=== PATIENT | female | born 1995 | race Caucasian/White ===

== ENCOUNTER 2017-08-17 07:15 | Outpatient (CLI) | payer OTHER | END 2017-08-17 07:16 | disposition home or self-care (01) | LOC: BICULT 07:15 | PROVIDERS: ATTEND Family Medicine | DX: R10.2 Pelvic and perineal pain (principal) | CPT/HCPCS: 76856 ==

== ENCOUNTER 2017-09-19 08:46 | Outpatient (CLI) | payer OTHER ==
--- NOTE | 2017-09-19 12:43 | NM ---
RADIONUCLIDE HEPATOBILIARY SCAN AND GALLBLADDER EJECTION FRACTION: Date: 09/19/17 HISTORY: Right upper quadrant pain. FINDINGS: Early images show physiologic uptake of radiotracer throughout the hepatic parenchyma. Gallbladder is first imaged at 11 minutes. Uptake is faintly visualized within the small bowel at the end of 1 hour . After administration of fatty meal, there is progressive excretion of radiotracer to the small jorge l. Ejection fraction is calculated at 85%. IMPRESSION: Normal hepatobiliary scan. Normal gallbladder ejection fraction. POS: [facility]
== END 2017-09-19 08:47 | disposition home or self-care (01) ==
LOC: NM 08:46
PROVIDERS: ATTEND Surgery
DX: R10.11 Right upper quadrant pain (principal)
CPT/HCPCS: 78227; A9537

== ENCOUNTER 2017-09-20 23:10 | Emergency (ER) | payer OTHER ==
[2017-09-20] MEDS ORDERED: Ondansetron HCl/PF 4 MG/2 ML Vial ONE (23:50)
[2017-09-20 23:51] LABS: Bilirubin Negative (Negative); Blood, Urine Negative (Negative); Clarity Clear (Clear); Glucose, Urine (Dipstick) Negative (Negative); Leukocyte Negative (Negative); Nitrite Negative (Negative); Protein, Urine (Dipstick) Negative (Neg-Trace); Specific Gravity 1.005 (1.002-1.036); Specific Gravity, Urine 1.005 (1.002-1.036); Urobilinogen 0.2 mg/dL (0.2-1.0)
[2017-09-20 23:52] LABS: Pregu Control Background? CLEAR/WHITE (CLR/WHITE); Pregu Control Bar Appear? YES (CONTROL BAR)
[2017-09-20 23:53] LABS: Pregnancy Test - Urine (BHCG) Negative (Negative)
[2017-09-21 00:05] LABS: Eosinophils 2 % (0-10); Lymphocytes 31 % (21-51); MDiff Complete? YES; Mean Corpuscular HGB CONC 32.5 g/dL (32.0-36.0); Mean Corpuscular Hemoglobin 26.5 pg (27.0-31.0); Mean Corpuscular Volume 81.6 fl (81.0-99.0); Mean Platelet Volume 7.7 fL (7.4-10.4); Monocytes 5 % (0-10); Neutrophil 56 % (42-75); Platelet Count 277 thou/uL (130-400); RBC Distribution Width 12.1 % (11.5-14.5); Reactive Lymphocytes 6 % (0-10); Red Blood Cell (RBC) Count 4.89 mill/uL (4.20-5.40); White Blood Cell (WBC) Count 8.1 thou/uL (4.8-10.8)
[2017-09-21 00:17] LABS: BUN (Urea Nitrogen) 9 mg/dL (7.0-18.7); Calc. Creatinine Clearance 0 mL/min (70-130); Carbon Dioxide 21 mmol/L (22-29); Chloride 107 mmol/L (98-107); Estimated GFR-MDRD Greater than 90; Glucose 91 mg/dL (70-105); Sodium 139 mmol/L (136-145)
[2017-09-21 00:18] LABS: ALT (SGPT) 12 U/L (8-55); AST (SGOT) 17 U/L (5-34); Albumin 4.5 g/dL (3.5-5.0); Alkaline Phosphatase 58 U/L (40-150); Bilirubin, Total 0.3 mg/dL (0.2-1.2); Calcium 9.8 mg/dL (7.8-10.44); Globulin 2.7 g/dL (2.4-3.5); Lipase 34 U/L (8-78); Magnesium 2.1 mg/dL (1.6-2.6); Protein, Total 7.2 g/dL (6.0-8.3)
[2017-09-21 00:19] LABS: Anion Gap 15 mmol/L (10-20)
[2017-09-21] MEDS ORDERED: Lidocaine Viscous Sol 2% 15 ml UD Cup ONE (00:41)
[2017-09-21] MEDS ORDERED: Mag-Al Plus 1200 MG/1200 MG/120 MG/30 ML UDCUP ONE (00:41)
[2017-09-21] MEDS ORDERED: Ondansetron HCl/PF 4 MG/2 ML Vial ONE (00:44)
[2017-09-21] MEDS ORDERED: Famotidine/PF 20 mg/2ml Vial ONE (03:33)
--- NOTE | 2017-09-21 07:42 | ULT ---
PRELIMINARY REPORT/[facility]/EMERGENCY AFTER HOURS PROCEDURE: EXAM: US Abdomen Limited, Right Upper Quadrant CLINICAL HISTORY: 22 years old, female; Pain and signs and symptoms; Nausea and vomiting; Abdominal pain; Other: Epigas tric pain that radiates to back; Prior surgery; Surgery date: 6+ months; Surgery type: Gastric bypass TECHNIQUE: Real-time ultrasound of the right upper quadrant with image documentation. COMPARISON: No relevant prior studies available. FINDINGS: Liver: No acute findings. No mass. No intrahepatic bile duct dilation. Gallbladder: No acute findings. No gallstones. Common bile duct: 3 mm. Unremarkable as visualized. No stones. No dilation. Pancreas: Unremarkable as visualized. Right kidney: 11.8 cm. No acute findings. No stones. No solid mass. No hydronephrosis. IMPRESSION: No acute disease identified. Thank you for allowing us to participate in the care of your patient. Dictated and Authenticated by: Tereza Sol MD 09/21/2017 1:09 AM Central Time ([place] & [place]) FINAL REPORT RIGHT UPPER QUADRANT ABDOMINAL ULTRASOUND FINDINGS/IMPRESSION: I agree with the findings and impression given in the preliminary report per [facility] physician. No sig nificant abnormality. POS: [facility]
--- NOTE | 2017-09-21 07:44 | CT ---
PRELIMINARY REPORT/[facility]/EMERGENCY AFTER HOURS PROCEDURE: EXAM: CT Abdomen and Pelvis With Intravenous Contrast CLINICAL HISTORY: dizziness, vomiting, recent weight loss. TECHNIQUE: Axial computed tomography images of the abdomen and pelvis with intravenous contrast. All CT scans at this facility use one or more dose reduction techniques, viz.: automated exposure control; ma/kV adj ustment per patient size (including targeted exams where dose is matched to indication; i.e. head); o r iterative reconstruction technique. Coronal reformatted images were created and reviewed. CONTRAST: 100 mL of ISOVUE 370 administered intravenously. COMPARISON: US - Abdomen 2017-09-21 00:11 FINDINGS: Lower thorax: No acute findings. ABDOMEN: Liver: No acute findings. No mass. Gallbladder and bile ducts: No acute findings. No calcified stones. No ductal dilation. Pancreas: No acute findings. No mass. No ductal dilation. Spleen: No acute findings. No splenomegaly. Adrenals: No acute findings. No mass. Kidneys and ureters: No acute findings. No solid mass. No hydronephrosis. Stomach and bowel: Gastric bypass without visible complication. There is moderate colonic fecal reten tion. No obstruction. No mucosal thickening. Appendix: No findings to suggest acute appendicitis. PELVIS: Bladder: No acute findings. No mass. Reproductive: 2.4 x 2.4 cm right adnexal cyst, likely physiologic ovarian cyst given patient's age. ABDOMEN and PELVIS: Intraperitoneal space: No acute findings. No free air. No significant fluid collection. Bones/joints: No acute fracture. No dislocation. Soft tissues: No acute findings. Vasculature: No acute findings. No abdominal aortic aneurysm. Lymph nodes: No acute findings. No enlarged lymph nodes. IMPRESSION: Gastric bypass without visible complication. Fecal retention 2.4 x 2.4 cm right adnexal cyst, likely physiologic ovarian cyst given patient's age. Thank you for allowing us to participate in the care of your patient. Dictated and Authenticated by: Tereza Sol MD 09/21/2017 3:24 AM Central Time ([place] & [place]) FINAL REPORT EMERGENT AFTER HOURS CT ABDOMEN AND PELVIS WITH CONTRAST: FINDINGS/IMPRESSION: 1. I agree with the findings and impression given in the preliminary report per [facility] physician. No evidence of acute intraabdominal/pelvic abnormality. 2. There is a follicle in the right adnexa which is likely physiologic. POS: [facility]
== END 2017-09-21 04:08 | disposition home or self-care (01) ==
LOC: SCSER 23:10
DX: K59.00 Constipation, unspecified (principal); K21.9 Gastro-esophageal reflux disease without esophagitis; Z87.891 Personal history of nicotine dependence
CPT/HCPCS: 74177; 76705; 80053; 81003; 81025; 83605; 83690; 83735; 85025; 96361; 96374; 96375; 96376; J2270; J2405; S0028

== ENCOUNTER 2017-09-23 18:58 | Emergency (ER) | payer OTHER ==
[2017-09-23 20:06] LABS: #Basophils 0.1 thou/uL (0.0-0.2); #Eosinphils 0.1 thou/uL (0.0-0.7); #Lymphocytes 2.1 thou/uL (1.20-3.40); #Monocytes 0.6 thou/uL (0.11-0.59); #Neutrophils 4.2 thou/uL (1.40-6.50); %Basophils 1.3 % (0.0-1.0); %Eosinophils 1.5 % (0.0-10.0); %Lymphocytes 29.8 % (21.0-51.0); %Monocytes 8.9 % (0.0-10.0); %Neutrophils 58.6 % (42.0-75.0); Hemoglobin 12.8 g/dL (12.0-16.0); Mean Corpuscular HGB CONC 33.3 g/dL (32.0-36.0); Mean Corpuscular Hemoglobin 27.5 pg (27.0-31.0); Mean Corpuscular Volume 82.8 fl (81.0-99.0); Mean Platelet Volume 9.4 fL (7.4-10.4); Platelet Count 252 thou/uL (130-400); RBC Distribution Width 12.2 % (11.5-14.5); Red Blood Cell (RBC) Count 4.64 mill/uL (4.20-5.40); White Blood Cell (WBC) Count 7.1 thou/uL (4.8-10.8)
--- NOTE | 2017-09-23 20:08 | RAD ---
ABDOMEN TWO VIEWS AND UPRIGHT CHEST: History: Abdominal pain. FINDINGS: Lungs are clear. There is stool throughout the colon suggesting constipation. Small bowel gas pattern is unremarkable. There is radiopaque suture overlying the left midabdomen indicating prior surgical procedure. IMPRESSION: Prominent stool throughout the colon. Bowel gas pattern otherwise unremarkable. POS: [facility]
[2017-09-23 20:17] LABS: ALT (SGPT) 14 U/L (8-55); AST (SGOT) 17 U/L (5-34); Albumin 4.2 g/dL (3.5-5.0); Alkaline Phosphatase 63 U/L (40-150); Anion Gap 15 mmol/L (10-20); BUN (Urea Nitrogen) 11 mg/dL (7.0-18.7); Bilirubin, Total 0.2 mg/dL (0.2-1.2); Calc. Creatinine Clearance 0 mL/min (70-130); Calcium 9.1 mg/dL (7.8-10.44); Carbon Dioxide 20 mmol/L (22-29); Chloride 108 mmol/L (98-107); Estimated GFR-MDRD Greater than 90; Globulin 2.7 g/dL (2.4-3.5); Lipase 60 U/L (8-78); Protein, Total 6.9 g/dL (6.0-8.3); Sodium 139 mmol/L (136-145)
[2017-09-23 20:20] LABS: Glucose 55 mg/dL (70-105)
[2017-09-23] MEDS ORDERED: Ondansetron HCl/PF 4 MG/2 ML Vial ONE (20:59)
== END 2017-09-23 21:38 | disposition home or self-care (01) ==
LOC: SCSER 18:58
DX: K59.00 Constipation, unspecified (principal); K31.9 Disease of stomach and duodenum, unspecified; K21.9 Gastro-esophageal reflux disease without esophagitis; F32.9 Major depressive disorder, single episode, unspecified; Z87.891 Personal history of nicotine dependence
CPT/HCPCS: 36416; 74022; 80053; 83690; 85025; 96374; J2405

== ENCOUNTER 2017-12-16 23:26 | Emergency (ER) | payer OTHER ==
[2017-12-17] MEDS ORDERED: Acetaminophen 500 MG TAB ONE (00:10)
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
== END 2017-12-17 00:43 | disposition home or self-care (01) ==
LOC: SCSER 23:26
DX: O9A.211 Injury, poisoning and certain other consequences of external causes complicating pregnancy, first trimester (principal); S63.501A Unspecified sprain of right wrist, initial encounter; S20.212A Contusion of left front wall of thorax, initial encounter; O99.341 Other mental disorders complicating pregnancy, first trimester; F43.10 Post-traumatic stress disorder, unspecified; F41.9 Anxiety disorder, unspecified; O99.611 Diseases of the digestive system complicating pregnancy, first trimester; K21.9 Gastro-esophageal reflux disease without esophagitis; Z3A.01 Less than 8 weeks gestation of pregnancy; Z87.891 Personal history of nicotine dependence; Y08.89XA Assault by other specified means, initial encounter

== ENCOUNTER 2018-04-05 21:17 | Day surgery (SDC) | payer OTHER ==
[2018-04-05 22:01] VITALS: BP 109/69; TEMP 99.1; BMI 30.2
[2018-04-05 22:36] LABS: Amnisure Test No Membranes Rupture (No Rupture)
[2018-04-05 22:37] LABS: Amnisure Internal Control QC ACCEPTABLE (ACCEPTABLE)
[2018-04-05 22:48] LABS: Bilirubin Negative (Negative); Blood, Urine Negative (Negative); Clarity CLEAR (Clear); Glucose, Urine (Dipstick) Negative (Negative); Leukocyte Negative (Negative); Nitrite Negative (Negative); Protein, Urine (Dipstick) Negative (Neg-Trace); Specific Gravity, Urine 1.008 (1.002-1.036)
--- NOTE | 2018-04-06 06:21 | SS ---
LABOR AND DELIVERY TRIAGE NOTE DATE OF EVALUATION: 04/05/2018 REGULAR PHYSICIAN: Claude Freeman M.D. EVALUATING PHYSICIAN: Darwin Armando M.D. CHIEF COMPLAINT: Leakage of fluid. HISTORY OF PRESENT ILLNESS: Ms. Rascon is a 23-year-old white G2, P1-0-0-1 with an estimated date of confinement of 08/24/2018, who presents to labor and delivery complaining of suspected leakage of fluid from the vagina since earlier this evening. She denies active bleeding or urinary symptoms. Her care has been with Dr. Freeman and she has had several visits with him. PAST OBSTETRICAL HISTORY: Includes a at term for nonreassuring heart tracing. PAST MEDICAL HISTORY: Includes multiple issues including hypoglycemia, ADHD, anxiety and migraines. PAST SURGICAL HISTORY: Includes her as above, gastric bypass and abdominoplasty. CURRENT MEDICATIONS: Adderall and vitamins. ALLERGIES: She reports multiple allergies to AMOXICILLIN, ASPIRIN and IBUPROFEN. SOCIAL HISTORY: She denies tobacco, alcohol, or drug use. FAMILY HISTORY: Denies pelvic malignancy. REVIEW OF SYSTEMS: Positive for suspected leakage of fluid, possible vaginal discharge. Denies nausea, vomiting, fever or chills. PHYSICAL EXAMINATION: VITAL SIGNS: Stable. She is afebrile. ABDOMEN: Soft, nontender and gravid. No vaginal bleeding is seen. heart tones are detected. No contractions are seen on external monitor. LABORATORY DATA: Urinalysis returns showing a specific gravity of 1.008 with negative protein, negative glucose, negative ketones, negative blood, negative nitrites and negative leukocyte esterase. AmniSure returns negative. BUMBOATER-3 panel returns negative for Trichomonas, Gardnerella or Yuly. ASSESSMENT: 1. A 19 and 6/7 week intrauterine by dates. 2. No evidence of ruptured membranes, vaginal infection or urinary tract infection. PLAN: The patient was reassured and allowed to go home. She states that she has a scheduled followup with Dr. Freeman. She was given complete precautions and was sent home in good condition. [facility]
== END 2018-04-05 23:35 | disposition home or self-care (01) ==
LOC: L&D/OP 21:17
PROVIDERS: ATTEND Obstetrics & Gynecology
DX: O99.342 Other mental disorders complicating pregnancy, second trimester (principal); F90.9 Attention-deficit hyperactivity disorder, unspecified type; F41.9 Anxiety disorder, unspecified; O99.352 Diseases of the nervous system complicating pregnancy, second trimester; G43.909 Migraine, unspecified, not intractable, without status migrainosus; O99.282 Endocrine, nutritional and metabolic diseases complicating pregnancy, second trimester; E16.2 Hypoglycemia, unspecified; Z88.6 Allergy status to analgesic agent; Z3A.19 19 weeks gestation of pregnancy; Z88.0 Allergy status to penicillin; Z88.8 Allergy status to other drugs, medicaments and biological substances
CPT/HCPCS: 81003; 84112; 87480; 87510; 87660; 99284

== ENCOUNTER → 2018-08-02 | Day surgery (SDC) | payer OTHER ==
[~2018-08-02] MED LIST: Acetaminophen 500 MG TAB PO SCH; Iron Sucrose Complex 200 MG in Sodium Chloride 0.9% 250 ML 250 ML IVPB SCH; Iron Sucrose Complex 500 MG in Sodium Chloride 0.9% 250 ML 250 ML IVPB SCH; Lactated Ringer's 1,000 ML IV SCH; diphenhydrAMINE 50 MG/ML VIAL ONE
[2018-08-02 15:28] VITALS: BP 118/74; TEMP 98.7; BMI 31.9
[2018-08-02 17:04] LABS: Mean Corpuscular HGB CONC 32.8 g/dL (32.0-36.0); Mean Corpuscular Volume 70.3 fL (78.0-98.0); Mean Platelet Volume 9.1 fL (7.4-10.4); Platelet Count 265 thou/uL (130-400); RBC Distribution Width 14.6 % (11.5-14.5); Red Blood Cell (RBC) Count 3.89 mill/uL (4.20-5.40); White Blood Cell (WBC) Count 8.6 thou/uL (4.8-10.8)
[2018-08-02] MEDS: Metoclopramide HCl 10 MG/2 ML VIAL IVP PRN ×2 (17:23→21:08)
[2018-08-02] MEDS: diphenhydrAMINE 50 MG/ML VIAL IVP PRN ×2 (17:23→21:08)
[2018-08-02 17:27] LABS: ALT (SGPT) 7 U/L (8-55); AST (SGOT) 18 U/L (5-34); Albumin 3.4 g/dL (3.5-5.0); Alkaline Phosphatase 200 U/L (40-150); Anion Gap 10 mmol/L (10-20); BUN (Urea Nitrogen) 4 mg/dL (7.0-18.7); Bilirubin, Total 0.4 mg/dL (0.2-1.2); Calc. Creatinine Clearance 241 mL/min (70-130); Carbon Dioxide 22 mmol/L (22-29); Chloride 107 mmol/L (98-107); Estimated GFR-MDRD Greater than 90; Globulin 2.9 g/dL (2.4-3.5); Glucose 71 mg/dL (70-105); Magnesium 1.6 mg/dL (1.6-2.6); Potassium 3.9 mmol/L (3.5-5.1); Protein, Total 6.3 g/dL (6.0-8.3); Sodium 135 mmol/L (136-145)
--- NOTE | 2018-08-02 22:48 | PRG ---
DATE OF SERVICE: 08/02/2018 PRIMARY COPPERSMITH HELPER: Dr. Larissa Freeman. CHIEF COMPLAINT: Near syncope and dizziness. HISTORY OF PRESENT ILLNESS: The patient is a 23-year-old, G2, P1 female with an intrauterine at 36 weeks and 6 days, who is presenting to Labor and Delivery with extreme dizziness upon standing and she reports this has been ongoing for the last couple of days, but is worsened today. The patient also reports that she has severe headache that she reported on her right side and describes it in the back half of her head and radiating down her neck and her ear. She reports that she does have some light sensitivity. She is nauseous and feels a pulsating pain. Upon further conversation with her, she does report a history of migraine, but has not had one with this . The patient also reports that she has a history of anemia with this and was told that she has hemoglobin of 6.4 in the office earlier and upon redraw in the lab, it is 8. The patient also reports a history of blood transfusion with her previous due to severe anemia. The patient also reports history of gastric bypass 5 years ago, but states that her vitamin levels have been within normal limits. She reports the bypass was a surgical re-routing of some nature. The patient denies any persistent vomiting. Denies diarrhea. Denies anorexia. Denies caffeine consumption or any other diuresing agents. She denies chest pain, though she does have it from time to time. Denies falls. Reports nausea daily, but denies vomiting. Reports extreme constipation. Denies no new rashes. Denies hip problems, knee problems, or muscle weakness. Denies vaginal bleeding or leakage of fluid. Denies urinary urgency. PAST MEDICAL HISTORY: Migraines and anemia. The patient also reports a history of ADD. PAST SURGICAL HISTORY: She has had a gastric bypass. She has had tonsillectomy, abdominoplasty, and a thigh lift. MEDICATIONS: The patient is on; 1. vitamins. 2. Diclegis. 3. Zofran p.r.n. 4. Iron supplements. 5. Effexor 37.5 mg. 6. Adderall 10 mg. ALLERGIES: PENICILLIN, SHE GETS A RASH. SOCIAL HISTORY: Denies drug, alcohol, or tobacco use. OB LABS: Blood type is O positive. Antibody screen is negative. She is rubella immune. RPR is nonreactive. GC and Chlamydia negative. Hepatitis B surface antigen nonreactive. HIV nonreactive and has had her GBS screen, but it is unavailable at this time. REVIEW OF SYSTEMS: Per HPI. PHYSICAL EXAMINATION: VITAL SIGNS: Initial blood pressure 128/71, heart rate of 109, respiratory rate of 18, saturating at 100% on room air, and temperature 98.7. On orthostatic pressures, her pulse changed by greater than 20 beats per minutes up into the 120s from the 90s at the time of orthostatic sitting position, and she continued to complain of dizziness while she was standing. GENERAL: She appears to be in no acute distress. She is alert, oriented, cooperative, and pleasant to interact with. HEENT: Head is normocephalic and atraumatic. LUNGS: Clear to auscultation bilaterally. HEART: Regular rate and rhythm. ABDOMEN: Soft and gravid. She has no CVA tenderness, no back tenderness to palpation. NEURO: Palpation of her scalp, the patient reports tenderness in her upper and lower scalp on the right side, it is the possible source of her headache. EXTREMITIES: Nontender, nonedematous. heart tracing performed and fetus noted to have a baseline in the 130s with moderate long-term variability, positive 15 x 15 accelerations, no deceleration, and no contractions on the monitor. ASSESSMENT AND PLAN: The patient is a 23-year-old female with history of anemia with this , history of blood transfusion due to severe anemia with end of her and reported hemoglobin of 6.4 in the office and 8 something in the clinic earlier this week, coupled with extreme constipation of oral iron The patient did, in our conversation, express an interest in IV infusion of iron, which she did receive in the previous without any complication. The patient has symptoms consistent with migraine headache, which we will treat with Reglan and Benadryl protocol. The patient also has symptoms of volume depletion or severe anemia with her positive orthostatic signs. With this, I will be IV hydrating her as well as iron infusion, also be getting BMP and CBC for review of electrolytes, and current hemoglobin and hematocrit and LFTs for her liver status due to the iron infusion. Fetus is reassuring and reactive. On re-evaluation of the patient, the patient reports her headache is completely resolved with migraine protocol. She has received a liter bolus of IV fluids and continues to receive IV fluids with her iron infusion. She denies any dizziness at this time since the migraine protocol was started. Once the IV infusion is completed, anticipate discharged to home. Dr. Freeman, her primary OB, is out of town and his partner, Dr. Xiao Mazariegos, is extrusion engineer. I have discussed the patient with her and she is aware of the plan in place. We will keep her informed. Job ID: [id number]
== END ==
LOC: L&D/OP 14:35
PROVIDERS: ATTEND Obstetrics & Gynecology
DX: O99.89 Other specified diseases and conditions complicating pregnancy, childbirth and the puerperium (principal); R55 Syncope and collapse; R42 Dizziness and giddiness; O99.843 Bariatric surgery status complicating pregnancy, third trimester; O99.343 Other mental disorders complicating pregnancy, third trimester; F98.8 Other specified behavioral and emotional disorders with onset usually occurring in childhood and adolescence; O99.013 Anemia complicating pregnancy, third trimester; D64.9 Anemia, unspecified; Z3A.36 36 weeks gestation of pregnancy; Z79.899 Other long term (current) drug therapy; Z88.0 Allergy status to penicillin; Z88.6 Allergy status to analgesic agent; Z88.8 Allergy status to other drugs, medicaments and biological substances
CPT/HCPCS: 36415; 80053; 83735; 85027; 96361; 96365; 96366; 96375; J1200; J1756; J2765; J7050

== ENCOUNTER 2018-08-08 11:00 | Inpatient (IN) | payer OTHER ==
[2018-08-08 11:33] VITALS: BMI 31.8
[2018-08-08] MEDS ORDERED: ePHEDrine/0.9% NaCl/PF SYRINGE 50 mg/10 ml ONE ×2 (11:38→15:21)
[2018-08-08] MEDS ORDERED: Ondansetron PF 4 MG/2 ML Vial ONE ×2 (11:38→14:59)
[2018-08-08] MEDS ORDERED: PHENYLEPHRINE-NS 100 MCG/ML 10 ML SYRINGE ONE ×2 (11:38→14:59)
[2018-08-08] MEDS ORDERED: Dexamethasone 20 MG/5 ML VIAL ONE (11:38)
[2018-08-08] MEDS: Lactated Ringer's 1,000 ML IV SCH ×2 (11:43→14:53)
[2018-08-08] MEDS ORDERED: Ondansetron PF 4 MG/2 ML Vial IVP PRN ×3 (11:58→16:38)
[2018-08-08] MEDS ORDERED: Butorphanol Tartrate 1 MG/ML VIAL SLOW IVP PRN (11:58)
[2018-08-08] MEDS ORDERED: Promethazine HCl 25 MG/ML VIAL IM PRN (11:58)
[2018-08-08] MEDS ORDERED: Bicitra 30 ML UDCUP PO SCH (12:00)
[2018-08-08] MEDS ORDERED: Clindamycin/D5W 900 MG in Premix Bag 1 BAG IVPB SCH (12:00)
[2018-08-08 12:15] LABS: Hemoglobin 9.4 g/dL (12.0-16.0); Mean Corpuscular HGB CONC 32.3 g/dL (32.0-36.0); Mean Corpuscular Hemoglobin 22.3 pg (27.0-31.0); Mean Platelet Volume 9.2 fL (7.4-10.4); Platelet Count 292 thou/uL (130-400); RBC Distribution Width 15.3 % (11.5-14.5); Red Blood Cell (RBC) Count 4.23 mill/uL (4.20-5.40); White Blood Cell (WBC) Count 11.2 thou/uL (4.8-10.8)
[2018-08-08] MEDS ORDERED: Clindamycin/D5W 900 mg/50 ml Premix Bag ONE (12:33)
[2018-08-08] MEDS ORDERED: Bicitra 30 ML UDCUP ONE (12:33)
[2018-08-08 12:50] LABS: HBSAg Index 0.16 S/CO (0-0.99); Hep B Surf Ag Non-Reactive S/CO (NonReactive)
[2018-08-08 12:51] LABS: Syphilis Antibody Nonreactive (Nonreactive); Syphilis Antibody Index 0.02 S/CO (<1.00 Non-Reactive)
[2018-08-08] MEDS ORDERED: Oxytocin 10 UNITS/ML VIAL ONE (14:59)
[2018-08-08] MEDS ORDERED: Morphine PF 1 MG/ML SYR ONE (14:59)
[2018-08-08] MEDS ORDERED: Ketorolac Tromethamine 30 MG/ML VIAL ONE ×2 (14:59→17:36)
[2018-08-08] MEDS ORDERED: Dexamethasone 4 mg/ml Vial ONE (14:59)
[2018-08-08] MEDS ORDERED: Lidocaine 1% PF 5 ML VIAL ONE (15:00)
[2018-08-08] MEDS ORDERED: Bupivacaine 0.75% W/DEXTROSE 8.25% 2 ML AMP ONE (15:00)
[2018-08-08] MEDS ORDERED: Midazolam HCl 2 mg/2 ml Vial ONE (15:45)
[2018-08-08] MEDS ORDERED: Ondansetron HCl/PF 4 MG/2 ML Vial IVP PRN (16:35)
[2018-08-08] MEDS ORDERED: diphenhydrAMINE 50 MG/ML VIAL IVP PRN (16:35)
[2018-08-08] MEDS ORDERED: Promethazine HCl 25 MG SUPP PR PRN (16:35)
[2018-08-08] MEDS ORDERED: Naloxone HCl 0.4 mg/ml Vial IVP PRN ×2 (16:35)
[2018-08-08] MEDS ORDERED: Meperidine HCl/PF 25 MG/ML VIAL SLOW IVP PRN (16:35)
[2018-08-08] MEDS ORDERED: Naloxone HCl 0.4 mg/ml Vial IV PRN (16:35)
[2018-08-08] MEDS ORDERED: HYDROmorphone 2 MG/ML VIAL SLOW IVP PRN (16:35)
[2018-08-08] MEDS ORDERED: Eucerin (Mineral Oil/Petrolatum,White) 30 gm Jar TOP PRN (16:35)
[2018-08-08] MEDS ORDERED: L&D-Morphine 4 MG/ML VIAL SLOW IVP PRN (16:35)
[2018-08-08] MEDS ORDERED: Adacel (T-DAP) 0.5 ML SYRINGE IM ONE (16:38)
[2018-08-08] MEDS ORDERED: Misoprostol 200 MCG TAB PR PRN (16:38)
[2018-08-08] MEDS ORDERED: Lanolin Ointment 7 GM TUBE TOP PRN (16:38)
[2018-08-08] MEDS ORDERED: Bisacodyl 10 MG SUPP PR PRN (16:38)
[2018-08-08] MEDS ORDERED: Acetaminophen 325 MG TAB PO PRN (16:38)
[2018-08-08] MEDS ORDERED: Zolpidem Tartrate 5 MG TAB PO PRN (16:38)
[2018-08-08] MEDS ORDERED: diphenhydrAMINE 25 MG CAP PO PRN (16:38)
[2018-08-08] MEDS ORDERED: Meperidine HCl/PF 25 MG/ML VIAL IM PRN (16:38)
[2018-08-08] MEDS ORDERED: Communication Order-Pharmacy FS SCH (16:45)
[2018-08-08] MEDS ORDERED: Acetaminophen 1,000 MG in Premix Bag 1 BAG IVPB SCH (16:45)
[2018-08-08] MEDS ORDERED: Ketorolac Tromethamine 30 MG/ML VIAL IVP SCH (16:45)
[2018-08-08] MEDS ORDERED: Lactated Ringer's 1,000 ML IV SCH (16:45)
[2018-08-08] MEDS: Ketorolac Tromethamine 30 MG/ML VIAL IVP PRN ×2 (17:37→23:24)
[2018-08-08] MEDS ORDERED: Meperidine HCl/PF 25 MG/ML VIAL ONE (18:00)
[2018-08-08] MEDS ORDERED: Morphine 4 MG/ML VIAL ONE (18:36)
[2018-08-08] MEDS: NS / Oxytocin 40 units/1000ml 1,000 ML IV SCH (18:37)
[2018-08-09] MEDS: NS / Oxytocin 40 units/1000ml 1,000 ML IV SCH (01:14)
[2018-08-09 05:24] LABS: Hemoglobin 8.8 g/dL (12.0-16.0); Mean Corpuscular HGB CONC 32.7 g/dL (32.0-36.0); Mean Corpuscular Hemoglobin 23.7 pg (27.0-31.0); Mean Corpuscular Volume 72.4 fL (78.0-98.0); Mean Platelet Volume 9.2 fL (7.4-10.4); Platelet Count 221 thou/uL (130-400); RBC Distribution Width 20.3 % (11.5-14.5); Red Blood Cell (RBC) Count 3.74 mill/uL (4.20-5.40); White Blood Cell (WBC) Count 10.8 thou/uL (4.8-10.8)
[2018-08-09] MEDS: Ibuprofen 800 MG TAB PO SCH ×3 (06:15→18:46)
[2018-08-09] MEDS: Docusate Calcium (SURFAK) 240 MG CAP PO SCH ×3 (06:15→20:50)
[2018-08-09] MEDS: Ferrous Sulfate 325 MG TAB PO SCH ×3 (06:15→20:51)
[2018-08-09] MEDS: Ketorolac Tromethamine 30 MG/ML VIAL IVP PRN (06:47)
[2018-08-09] MEDS: Acetaminophen/Codeine 30-300mg Tablet PO PRN ×3 (08:48→14:15)
[2018-08-09] MEDS: Prenatal Vitamin 1 TAB PO SCH (08:48)
[2018-08-09] MEDS: Simethicone Chewable 80 MG TAB PO PRN ×2 (08:48→16:38)
[2018-08-09] MEDS ORDERED: Acetaminophen/Codeine 30-300mg Tablet PO PRN (14:08)
[2018-08-09] MEDS ORDERED: HYDROcodone/Acetaminophen 5/325 mg Tablet PO PRN (19:04)
[2018-08-09] MEDS: HYDROcodone/Acetaminophen 5/325 mg Tablet PO PRN (20:50)
[2018-08-10] MEDS: HYDROcodone/Acetaminophen 5/325 mg Tablet PO PRN ×4 (01:34→21:41)
[2018-08-10] MEDS: Ibuprofen 800 MG TAB PO SCH ×5 (02:11→22:07)
[2018-08-10] MEDS: Simethicone Chewable 80 MG TAB PO PRN ×2 (09:25→16:51)
[2018-08-10] MEDS: Promethazine HCl 25 MG/ML VIAL IM PRN (09:29)
[2018-08-10] MEDS: Docusate Calcium (SURFAK) 240 MG CAP PO SCH ×2 (10:23→19:57)
[2018-08-10] MEDS: Ferrous Sulfate 325 MG TAB PO SCH ×2 (10:23→22:07)
[2018-08-10] MEDS: Prenatal Vitamin 1 TAB PO SCH (10:23)
[2018-08-11] MEDS: Ferrous Sulfate 325 MG TAB PO SCH ×2 (00:09→09:21)
[2018-08-11] MEDS: HYDROcodone/Acetaminophen 5/325 mg Tablet PO PRN ×2 (03:02→10:45)
[2018-08-11] MEDS: Simethicone Chewable 80 MG TAB PO PRN (03:11)
[2018-08-11] MEDS: Promethazine HCl 25 MG/ML VIAL IM PRN (03:31)
[2018-08-11] MEDS: Ibuprofen 800 MG TAB PO SCH ×3 (06:17→13:26)
[2018-08-11 08:20] VITALS: BP 106/55; TEMP 98.4
[2018-08-11] MEDS: Docusate Calcium (SURFAK) 240 MG CAP PO SCH (09:21)
[2018-08-11] MEDS: Prenatal Vitamin 1 TAB PO SCH (09:21)
--- NOTE | 2018-08-12 09:25 | OP ---
DATE OF PROCEDURE: 08/08/2018 RESIDENT SURGEON: Arlette Lino DO ATTENDING SURGEON: Claude Freeman MD PROCEDURE PERFORMED: Repeat low transverse section. PREOPERATIVE DIAGNOSES: 1. Term intrauterine at 37.5 wks. 2. Labor with prior section. POSTOPERATIVE DIAGNOSES: 1. Term intrauterine at 37.5 wks. 2. Labor with prior section. ANESTHESIA: Spinal INDICATIONS FOR PROCEDURE: The patient is a 23-year-old G2, P1 at 37.5 weeks gestation, who presented in labor and has had a prior delivery. PROCEDURE IN DETAIL: After risks, benefits, and alternatives were explained to the patient, she gave informed consent. Preoperative antibiotics included cefazolin 2 g IV. The patient was taken to the operating room and spinal anesthesia was initiated. She was placed in the supine position with a left tilt and prepped and draped in the usual sterile fashion. A Pfannenstiel incision was made with the scalpel and carried down to the level of the fascia, which was sharply nicked. The fascial cut was extended bilaterally with Swanson scissors. The inferior and superior edges of the fascial edges were elevated with Brett clamps and underlying rectus muscles were sharply and bluntly dissected free. The recti were divided digitally and retracted manually. The peritoneum was entered bluntly and retracted manually. Bladder blade was placed. Bladder flap was created with Metzenbaum scissors. A low transverse scar was made with the scalpel and the uterus was entered in the midline with the scalpel. Clear fluid was seen. The hysterotomy was extended manually. The was noted to be vertex and easily delivered by fundal pressure. Mouth and nares were bulb suctioned. Cord clamped and cut and grossly normal male infant was handed to the waiting nurse. Cord blood was obtained. Placenta was manually extracted and found to be intact with 3-vessel cord and discarded. The uterus was externalized and endometrium was curetted with a dry lap. The bladder blade was replaced and the uterus was closed with a running locking #1 chromic suture. Following this, hemostasis was noted. Seprafilm was placed over the hysterotomy site. The peritoneum was closed using 2-0 Vicryl. The recti muscles were brought together using 2-0 Vicryl. The fascia was closed with a running nonlocking 0 Vicryl suture. The subcutaneous tissue was irrigated and bleeders were cauterized. The subcutaneous tissue was closed using 2-0 plain gut. The skin was approximated with the 4-0 Monocryl and Dermabond. A pressure dressing and ice pack were placed. All counts were correct. The patient tolerated the procedure well and was taken to the recovery room in stable condition. ESTIMATED BLOOD LOSS: Approximately 500 mL. COMPLICATIONS: None. SPECIMEN: Cord blood sent to lab for blood type. FINDINGS: Grossly normal male with Apgars of 7 and 9. Grossly normal placenta with 3-vessel cord discarded. DRAINS: Constantino to gravity draining clear urine. Job ID: [id number] [facility]
== END 2018-08-11 16:10 | disposition home or self-care (01) | DRG 788 ==
LOC: L&D 11:04 → 3SW 19:59
PROVIDERS: ADMIT Obstetrics & Gynecology; ATTEND Obstetrics & Gynecology
PROC: 10D00Z1 Extraction of Products of Conception, Low, Open Approach (ICD-10-PCS; principal; 2018-08-08)
DX: O34.211 Maternal care for low transverse scar from previous cesarean delivery (principal); O75.82 Onset (spontaneous) of labor after 37 completed weeks of gestation but before 39 completed weeks gestation, with delivery by (planned) cesarean section; Z3A.37 37 weeks gestation of pregnancy; Z37.0 Single live birth
CPT/HCPCS: 36415; 51702; 85027; 86780; 86850; 86900; 86901; 87340; J0131; J1100; J1200; J1885; J2001; J2175; J2250; J2270; J2274; J2405; J2550; J2590; J3490

== ENCOUNTER 2019-07-24 13:25 | Emergency (ER) | payer OTHER ==
[2019-07-24] MEDS ORDERED: Lidocaine 1% w/Epinephrine 1:100K 20 ML VIAL ONE (13:44)
[2019-07-24] MEDS ORDERED: HYDROcodone/Acetaminophen 5/325 mg Tablet ONE (13:46)
== END 2019-07-24 14:15 | disposition home or self-care (01) ==
LOC: SCSER 13:25
DX: L02.424 Furuncle of left upper limb (principal); L02.414 Cutaneous abscess of left upper limb; L03.114 Cellulitis of left upper limb; K21.9 Gastro-esophageal reflux disease without esophagitis; D64.9 Anemia, unspecified; F32.9 Major depressive disorder, single episode, unspecified; F41.9 Anxiety disorder, unspecified; Z79.899 Other long term (current) drug therapy; Z87.891 Personal history of nicotine dependence
CPT/HCPCS: 10060

== ENCOUNTER 2024-04-22 08:44 | Day surgery (SDC) | payer OTHER ==
[~2024-04-22 08:44] MED LIST changes: -Acetaminophen 500 MG TAB PO SCH; -Iron Sucrose Complex 200 MG in Sodium Chloride 0.9% 250 ML 250 ML IVPB SCH; -Lactated Ringer's 1,000 ML IV SCH; -diphenhydrAMINE 50 MG/ML VIAL ONE
[2024-04-22] MEDS ORDERED: Acetaminophen 500 MG TAB ONE (09:30)
[2024-04-22] MEDS: diphenhydrAMINE 25 MG CAP PO SCH (09:31)
[2024-04-22] MEDS: Acetaminophen 500 MG TAB PO SCH (09:31)
[2024-04-22] MEDS: Ondansetron ODT 8 MG TAB PO SCH (09:45)
[2024-04-22] MEDS: diphenhydrAMINE 25 MG CAP ONE (09:53)
[2024-04-22] MEDS ORDERED: diphenhydrAMINE 50 MG/ML VIAL ONE ×2 (09:53→12:51)
[2024-04-22] MEDS: diphenhydrAMINE 50 MG/ML VIAL IVP SCH ×2 (09:54→12:53)
[2024-04-22 15:34] VITALS: BP 116/66; TEMP 98.2
== END 2024-04-22 16:11 | disposition home or self-care (01) ==
LOC: ONC/OP 08:44
PROVIDERS: ATTEND Family Medicine
DX: O99.013 Anemia complicating pregnancy, third trimester (principal); Z3A.00 Weeks of gestation of pregnancy not specified; Z88.1 Allergy status to other antibiotic agents; Z88.6 Allergy status to analgesic agent; Z91.041 Radiographic dye allergy status; Z88.8 Allergy status to other drugs, medicaments and biological substances
CPT/HCPCS: 96365; 96366; 96375; J1200; J1756; J7050; Q0162